=== PATIENT | male | born 1980 | race African-American/Black ===

== ENCOUNTER 2019-07-07 16:11 | Emergency (ER) | payer MEDICAID ==
[~2019-07-07] VITALS: Ht 167.6 cm; Wt 145.0 kg
[~2019-07-07 16:11] MED LIST: NO MEDS
[2019-07-07 20:40] VITALS: BP 145/80
== END 2019-07-07 20:40 | disposition home or self-care (01) ==
LOC: ER 16:11
DX: M25.551 Pain in right hip (principal); H10.9 Unspecified conjunctivitis; H00.14 Chalazion left upper eyelid; M25.552 Pain in left hip; H00.11 Chalazion right upper eyelid
CPT/HCPCS: 99283